=== PATIENT | male | born 1990 | race Caucasian/White ===

== ENCOUNTER 2017-02-18 13:59 | Emergency (ER) | payer SELFPAY ==
[~2017-02-18] VITALS: Ht 177.8 cm; Wt 70.5 kg
[2017-02-18 14:01] VITALS: BP 164/89; PULSE 98; RESP 20; TEMP 98.4; O2SAT 99
--- NOTE | 2017-02-18 14:35 | PD ---
HPI . left forearm laceration Chief Complaint: Laceration/Skin Injury Time Seen by Provider: 14:23 Travel History International Travel<30 days: No Contact w/Intl Traveler<30days: No Traveled to known affect area: No History of Present Illness HPI 27-year-old male with history of type 1 diabetes here with complaints of left forearm laceration. Patient was working on sheet metal when he actually cut himself on some type of cutting device. He does not know his last tetanus date. He is here for repair. He has no specific complaints other than pain at the site of the laceration. [facility] Past Medical History Diabetes: Yes Social History Tobacco Use: Yes Allergies-Medications (Allergen,Severity, Reaction): Coded Allergies: No Known Allergies (Unverified , 02/18/17) Reported Meds & Prescriptions Reported Meds & Active Scripts Active Bactrim DS (Sulfamethoxazole-Trimethoprim) 800-160 Mg Tab 1 Tab PO BID Review of Systems General / Constitutional: No: Fever Eyes: No: Visual changes HENT: No: Headaches Cardiovascular: No: Chest Pain or Discomfort Respiratory: No: Shortness of Breath Gastrointestinal: No: Abdominal Pain Genitourinary: No: Dysuria Musculoskeletal: No: Pain Skin: Positive Other (laceration ), No Rash Neurologic: No: Weakness Psychiatric: No: Depression Endocrine: No: Polydipsia Hematologic/Lymphatic: No: Easy Bruising Physical Exam Narrative GENERAL: AAO x 3, no acute distress, Well-nourished, well-developed patient. SKIN: Warm and dry. No visible rashes or bruising. 2 cm laceration to the left forearm doubt evidence of injury to bone, vessel or tendon. HEAD: Normocephalic and atraumatic. EYES: No scleral icterus. No injection or drainage. EOM intact, PERRLA ENT: No nasal drainage noted. Mucous membranes pink. Airway patent. NECK: Supple, trachea midline. No JVD. CARDIOVASCULAR: Regular rate and rhythm without murmurs, gallops, or rubs. RESPIRATORY: Breath sounds equal bilaterally. No accessory muscle use. No rhonchi or rales. GASTROINTESTINAL: Abdomen soft, non-tender, nondistended. EXTREMITIES: No cyanosis or edema. All digits of the left hand move normally. No evidence of tendon injury BACK: Nontender without obvious deformity. No CVA tenderness. 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 2. discrimination is normal in the left hand PSYCH: AAO x 3, normal affect. Data Data Last Documented VS Vital Signs Date Time Temp Pulse Resp B/P (MAP) Pulse Ox O2 Delivery O2 Flow Rate FiO2 02/18/17 15:10 02/18/17 14:01 98.4 98 20 99 Room Air Orders Orders Tetanus/Diphtheria Tox Adult (Tetanus/Di (02/18/17 14:45) Lidocaine 1% Inj (50 Ml) (Xylocaine 1% I (02/18/17 14:45) [facility] Medical Decision Making Medical Screen Exam Complete: Yes Emergency Medical Condition: Yes Medical Record Reviewed: Yes Differential Diagnosis forearm laceration, less likely fracture, less likely tendon injury Narrative Course 27 year old male here for repair of his left forearm laceration. On examination there is a 2 cm laceration amenable to repair with sutures. Patient gave verbal consent. 6 sutures were placed in the left forearm. Patient tolerated without incident. Tetanus administered without incident. Recommend removal in 10-14 days. Advised patient he can come to the emergency department or f/u with his primary care provider. Patient tells me he will take these out at home. We discussed signs of infection went to return to the ED. We discussed proper wound care. He is diabetic, therefore will provide him with some antibiotics. We discussed proper healing. Patient verbalized understanding of instructions, questions were answered, and thanked me for their care. I advised them if their condition worsens, please return to the nearest emergency room for further care. Procedures Procedure Narrative LACERATION LOCATION: Left forearm LENGTH: 2 cm NUMBER OF STITCHES/AMINAH: 6 sutures REPAIR: The area of the laceration was prepped with Betadine and sterilely draped. The laceration was infiltrated with 1% lidocaine. The wound was copiously irrigated and explored without evidence of foreign body, tendon injury or neurovascular injury. The wound was closed using 4-0 Prolene. This was a single layer repair. A sterile dressing was applied. The patient was advised to keep the dressing clean and dry. Patient tolerated the procedure well. Diagnosis Primary Impression: Laceration of forearm without complication Qualified Codes: S51.812A - Laceration without foreign body of left forearm, initial encounter Patient Instructions: General Instructions Additional Instructions: Keep area clean and dry. Use gauze as we discussed and change 1-2 times a day. Watch for signs of infection: fever, redness, swelling, warmth, pus or drainage , red streaks around the cut, and increased pain from the area. If you received a tetanus shot, you may experience tenderness at the injection site. This is normal. Please return to emergency department if your symptoms return or worsen. Follow up with your primary care provider. Take medications as prescribed. These 6 sutures will need to be removed in 10-14 days. Please return to the emergency department or follow-up with your primary care provider. Med/Other Pt SpecificInfo: Prescription(s) given Scripts Sulfamethoxazole-Trimethoprim (Bactrim DS) 800-160 Mg Tab 1 TAB PO BID for Infection, #20 TAB 0 Refills Prov: Julio Stahl MD 02/18/17 Disposition: 01 DISCHARGE HOME Condition: Stable Claudia Madrigal Feb 18, 2017 14:35
[2017-02-18] MEDS ORDERED: TETANUS/DIPHTHERIA TOXOID ADULT 0.5 ML VIAL IM ONE (14:45)
[2017-02-18] MEDS ORDERED: LIDOCAINE HCL 1% 50 ML VIAL INFIL ONE (14:45)
[2017-02-18] MEDS ORDERED: BACT800T5 PO (15:03)
== END 2017-02-18 15:12 | disposition home or self-care (01) ==
LOC: NEPK 13:59
DX: S51.812A Laceration without foreign body of left forearm, initial encounter (principal); E10.9 Type 1 diabetes mellitus without complications; W45.8XXA Other foreign body or object entering through skin, initial encounter; Y93.89 Activity, other specified; Z23 Encounter for immunization; Z72.0 Tobacco use
CPT/HCPCS: 12001; 90471; 90714